=== PATIENT | male | born 1955 | race American Indian/Alaskan Native ===

== ENCOUNTER 2017-06-12 15:13 | Emergency (ER) | payer MEDICARE ==
[2017-06-12 15:22] VITALS: BP 122/67
--- NOTE | 2017-06-12 18:29 | Emergency Department Report ---
Entered by CASTILLO BLUM, acting as scribe for WEN JUAREZ NP. ED ENT HPI - General Chief complaint: Dental/Oral Stated complaint: TOOTHACHE Time Seen by Provider: 06/12/17 17:16 Source: patient Mode of arrival: Wheelchair Limitations: No Limitations - History of Present Illness Initial comments: This is a 61 y/o male, nontoxic, well nourished in appearance, no acute signs of distress presents with toothache x few days. Associated symptoms include facial swelling but denies ear pain, stiff neck, headache, chest pain, shortness of breath, numbness, tingling, fever, chills, nausea and vomiting. Pain is described as 8/10 on a severity scale. Patient has a follow-up appointment with a dentist this Tuesday coming up. No alleviating or aggravating factors. NKDA. SOLOMON complaint: tooth pain -: days(s) Severity: severe Severity scale (0 -10): 8 Consistency: constant Improves with: none Worsens with: none Associated Symptoms: toothache, other (facial swelling, denies: fever, chills, nausea, vomiting, ear pain). denies: fever, cough, gum swelling, pain with swallowing, sore throat, tinnitus, hearing loss, discharge from ear, rhinorrhea - Related Data Home Medications Medication Instructions Recorded Confirmed Last Taken Aspirin [Aspirin Enteric Coated] 81 mg PO DAILY 03/13/14 02/25/17 Unknown [place]-3 Acid Ethyl Esters [Lovaza] 2 gm PO BID 03/13/14 02/25/17 Unknown Dorzolamide 2% (Nf) [Trusopt] 1 drop OP TID 02/25/17 02/25/17 Unknown Doxazosin Mesylate [Cardura] 8 mg PO BID 02/25/17 02/25/17 Unknown Insulin Aspart Prot/Aspart(Nf) 0 units SC QDAY 02/25/17 02/25/17 Unknown [NovoLOG Mix 70/30 VIAL] Montelukast [Singulair] 10 mg PO QDAY 02/25/17 02/25/17 Unknown Omeprazole 40 mg PO QDAY 02/25/17 02/25/17 Unknown amLODIPine [Norvasc] 10 mg PO QDAY 02/25/17 03/02/17 Unknown Previous Rx's Medication Instructions Recorded Last Taken Type Fluticasone [Flonase] 100 mcg NS QDAY #1 bottle 07/13/16 Unknown Rx Folic Acid/Vit B Comp W-C [Renal 1 cap PO QDAY capsule 07/13/16 Unknown Rx Caps] Furosemide [Lasix TAB] 80 mg PO QDAY #30 tablet 07/13/16 Unknown Rx ISOSORBIDE MONOnitrate [Imdur ER] 60 mg PO QDAY #30 tablet 07/13/16 Unknown Rx Latanoprost 0.005% [Xalatan 0.005%] 1 drop OP QPM #1 bottle 07/13/16 Unknown Rx Docusate Sodium [Colace CAP] 100 mg PO BID #20 capsule 03/04/17 Unknown Rx HYDROcodone/APAP 10-325 [[place] 1 each PO Q8H PRN #15 tablet 03/04/17 Unknown Rx 10-325 mg TAB] Labetalol [Normodyne TAB] 300 mg PO TID #90 tablet 03/04/17 Unknown Rx Sodium Bicarbonate 1,300 mg PO TID #90 tablet 03/04/17 Unknown Rx hydrALAZINE [Apresoline TAB] 100 mg PO Q8HR #90 tab 03/04/17 Unknown Rx Amoxicillin/K Clav Tab [Augmentin 1 tab PO Q12HR #20 tab 06/12/17 Unknown Rx 875 mg] Ibuprofen [Motrin 600 MG tab] 600 mg PO Q8H PRN #30 tablet 06/12/17 Unknown Rx Allergies Allergy/AdvReac Type Severity Reaction Status Date / Time morphine Allergy Unknown Verified 06/12/17 15:18 MARIA DEL CARMEN Inhibitors AdvReac Swelling Verified 06/12/17 15:18 atorvastatin calcium AdvReac muscle Verified 06/12/17 15:18 [From Lipitor] weakness sevelamer AdvReac Nausea Verified 06/12/17 15:18 sevelamer HCl [From Renagel] AdvReac Nausea Verified 06/12/17 15:18 simvastatin AdvReac muscle Verified 06/12/17 15:18 weakness ED Dental HPI - General Chief complaint: Dental/Oral Stated complaint: TOOTHACHE Time Seen by Provider: 06/12/17 16:33 Source: patient Mode of arrival: Wheelchair Limitations: No Limitations - Related Data Home Medications Medication Instructions Recorded Confirmed Last Taken Aspirin [Aspirin Enteric Coated] 81 mg PO DAILY 03/13/14 02/25/17 Unknown [place]-3 Acid Ethyl Esters [Lovaza] 2 gm PO BID 03/13/14 02/25/17 Unknown Dorzolamide 2% (Nf) [Trusopt] 1 drop OP TID 02/25/17 02/25/17 Unknown Doxazosin Mesylate [Cardura] 8 mg PO BID 02/25/17 02/25/17 Unknown Insulin Aspart Prot/Aspart(Nf) 0 units SC QDAY 02/25/17 02/25/17 Unknown [NovoLOG Mix 70/30 VIAL] Montelukast [Singulair] 10 mg PO QDAY 02/25/17 02/25/17 Unknown Omeprazole 40 mg PO QDAY 02/25/17 02/25/17 Unknown amLODIPine [Norvasc] 10 mg PO QDAY 02/25/17 03/02/17 Unknown Previous Rx's Medication Instructions Recorded Last Taken Type Fluticasone [Flonase] 100 mcg NS QDAY #1 bottle 07/13/16 Unknown Rx Folic Acid/Vit B Comp W-C [Renal 1 cap PO QDAY capsule 07/13/16 Unknown Rx Caps] Furosemide [Lasix TAB] 80 mg PO QDAY #30 tablet 07/13/16 Unknown Rx ISOSORBIDE MONOnitrate [Imdur ER] 60 mg PO QDAY #30 tablet 07/13/16 Unknown Rx Latanoprost 0.005% [Xalatan 0.005%] 1 drop OP QPM #1 bottle 07/13/16 Unknown Rx Docusate Sodium [Colace CAP] 100 mg PO BID #20 capsule 03/04/17 Unknown Rx HYDROcodone/APAP 10-325 [[place] 1 each PO Q8H PRN #15 tablet 03/04/17 Unknown Rx 10-325 mg TAB] Labetalol [Normodyne TAB] 300 mg PO TID #90 tablet 03/04/17 Unknown Rx Sodium Bicarbonate 1,300 mg PO TID #90 tablet 03/04/17 Unknown Rx hydrALAZINE [Apresoline TAB] 100 mg PO Q8HR #90 tab 03/04/17 Unknown Rx Amoxicillin/K Clav Tab [Augmentin 1 tab PO Q12HR #20 tab 06/12/17 Unknown Rx 875 mg] Ibuprofen [Motrin 600 MG tab] 600 mg PO Q8H PRN #30 tablet 06/12/17 Unknown Rx Allergies Allergy/AdvReac Type Severity Reaction Status Date / Time morphine Allergy Unknown Verified 06/12/17 15:18 MARIA DEL CARMEN Inhibitors AdvReac Swelling Verified 06/12/17 15:18 atorvastatin calcium AdvReac muscle Verified 06/12/17 15:18 [From Lipitor] weakness sevelamer AdvReac Nausea Verified 06/12/17 15:18 sevelamer HCl [From Renagel] AdvReac Nausea Verified 06/12/17 15:18 simvastatin AdvReac muscle Verified 06/12/17 15:18 weakness ED Review of Systems Comment: All other systems reviewed and negative Constitutional: denies: chills, fever Eyes: denies: eye pain, eye discharge, vision change ENT: dental pain, other (facial swelling). denies: ear pain Respiratory: denies: cough, shortness of breath, wheezing Cardiovascular: denies: chest pain, palpitations Endocrine: no symptoms reported Gastrointestinal: denies: nausea, vomiting Genitourinary: denies: urgency, dysuria Musculoskeletal: denies: back pain, joint swelling, arthralgia Skin: denies: rash, lesions Neurological: denies: headache, weakness, paresthesias Psychiatric: denies: anxiety, depression Hematological/Lymphatic: denies: easy bleeding, easy bruising ED Past Medical Hx - Past Medical History Hx Hypertension: Yes Hx CVA: Yes (TIA) Hx Heart Attack/AMI: Yes (CAD) Hx Congestive Heart Failure: Yes Hx Diabetes: Yes Hx Renal Disease: Yes (dialysis m,w,f) Hx Asthma: No Hx COPD: No - Surgical History Hx Coronary Stent: Yes Additional Surgical History: Toe , fistula right upper arm - Social History Smoking Status: Never Smoker Substance Use Type: None - Medications Home Medications: Home Medications Medication Instructions Recorded Confirmed Last Taken Type Aspirin [Aspirin Enteric Coated] 81 mg PO DAILY 03/13/14 02/25/17 Unknown History [place]-3 Acid Ethyl Esters [Lovaza] 2 gm PO BID 03/13/14 02/25/17 Unknown History Fluticasone [Flonase] 100 mcg NS QDAY #1 bottle 07/13/16 02/25/17 Unknown Rx Folic Acid/Vit B Comp W-C [Renal 1 cap PO QDAY capsule 07/13/16 02/25/17 Unknown Rx Caps] Furosemide [Lasix TAB] 80 mg PO QDAY #30 tablet 07/13/16 02/25/17 Unknown Rx ISOSORBIDE MONOnitrate [Imdur ER] 60 mg PO QDAY #30 tablet 07/13/16 02/25/17 Unknown Rx Latanoprost 0.005% [Xalatan 0.005%] 1 drop OP QPM #1 bottle 07/13/16 02/25/17 Unknown Rx Dorzolamide 2% (Nf) [Trusopt] 1 drop OP TID 02/25/17 02/25/17 Unknown History Doxazosin Mesylate [Cardura] 8 mg PO BID 02/25/17 02/25/17 Unknown History Insulin Aspart Prot/Aspart(Nf) 0 units SC QDAY 02/25/17 02/25/17 Unknown History [NovoLOG Mix 70/30 VIAL] Montelukast [Singulair] 10 mg PO QDAY 02/25/17 02/25/17 Unknown History Omeprazole 40 mg PO QDAY 02/25/17 02/25/17 Unknown History amLODIPine [Norvasc] 10 mg PO QDAY 02/25/17 03/02/17 Unknown History Docusate Sodium [Colace CAP] 100 mg PO BID #20 capsule 03/04/17 Unknown Rx HYDROcodone/APAP 10-325 [[place] 1 each PO Q8H PRN #15 tablet 03/04/17 Unknown Rx 10-325 mg TAB] Labetalol [Normodyne TAB] 300 mg PO TID #90 tablet 03/04/17 Unknown Rx Sodium Bicarbonate 1,300 mg PO TID #90 tablet 03/04/17 Unknown Rx hydrALAZINE [Apresoline TAB] 100 mg PO Q8HR #90 tab 03/04/17 Unknown Rx Amoxicillin/K Clav Tab [Augmentin 1 tab PO Q12HR #20 tab 06/12/17 Unknown Rx 875 mg] Ibuprofen [Motrin 600 MG tab] 600 mg PO Q8H PRN #30 tablet 06/12/17 Unknown Rx ED Physical Exam - General Limitations: No Limitations General appearance: alert, in no apparent distress - Head Head exam: Present: atraumatic, normocephalic, normal inspection - Eye Eye exam: Present: normal appearance, PERRL, EOMI. Absent: scleral icterus, conjunctival injection, nystagmus, periorbital swelling, periorbital tenderness Pupils: Present: normal accommodation - ENT ENT exam: Present: normal exam, normal orophraynx, mucous membranes moist, TM's normal bilaterally, normal external ear exam - Expanded ENT Exam Expanded Ear exam: Present: normal external inspection Mouth exam: Present: normal external inspection, tongue normal. Absent: drooling, trismus, muffled voice, tongue elevation, laceration Teeth exam: Present: dental caries, dental tenderness # (20,21), gingival enlargement, other (no pus, drainage, induration, or fluctuance noted. Mild facial swelling the left side. Tender to touch.). Absent: fractured tooth # 1 - Dental Tenderness Throat exam: Positive: normal inspection. Negative: tonsillar erythema, tonsillomegaly, tonsillar exudate, R peritonsillar mass, L peritonsillar mass - Neck Neck exam: Present: normal inspection, full ROM. Absent: tenderness, meningismus, lymphadenopathy, thyromegaly - Respiratory Respiratory exam: Present: normal lung sounds bilaterally. Absent: respiratory distress, wheezes, rales, rhonchi, stridor, chest wall tenderness, accessory muscle use, decreased breath sounds, prolonged expiratory - Cardiovascular Cardiovascular Exam: Present: regular rate, normal rhythm, normal heart sounds. Absent: bradycardia, tachycardia, irregular rhythm, systolic murmur, diastolic murmur, rubs, gallop - GI/Abdominal GI/Abdominal exam: Present: soft, normal bowel sounds. Absent: distended, tenderness, guarding, rebound, rigid, diminished bowel sounds - Rectal Rectal exam: Present: deferred - Extremities Exam Extremities exam: Present: normal inspection, full ROM, normal capillary refill. Absent: tenderness, pedal edema, joint swelling, calf tenderness - Back Exam Back exam: Present: normal inspection, full ROM. Absent: tenderness, CVA tenderness (R), CVA tenderness (L), muscle spasm, paraspinal tenderness, vertebral tenderness, rash noted - Neurological Exam Neurological exam: Present: alert, oriented X3, CN II-XII intact, normal gait, reflexes normal - Psychiatric Psychiatric exam: Present: normal affect, normal mood - Skin Skin exam: Present: warm, dry, intact, normal color, other (slight facial swelling ). Absent: rash ED Course Vital Signs 06/12/17 15:18 Temperature 97.8 F Pulse Rate 70 Respiratory 16 Rate Blood Pressure 122/67 O2 Sat by Pulse 98 Oximetry - Reevaluation(s) Reevaluation #1: 06/12/17 17:53 Patient is speaking in full sentences with no signs of distress noted. ED Medical Decision Making - Medical Decision Making 51-year-old male that presents with dental caries, and gingivitis. Patient was instructed to follow-up with a dentist in 24 hours or symptoms worsen such as facial swelling, pus, drainage, or any worsening symptoms return to emergency room as soon as possible. Patient be treated with Augmentin and ibuprofen at discharged. At time time of discharge, the patient does not seem toxic or ill in appearance. No acute signs of distress noted. Patient agrees to discharge treatment plan of care. No further questions noted by the patient. ED Disposition Clinical Impression: Dental caries, Gingivitis Disposition: - TO HOME OR SELFCARE Is pt being admited?: No Does the pt Need Aspirin: No Condition: Stable Instructions: Dental Caries (ED), Gingivitis (ED), Amoxicillin/Clavulanate Potassium (By mouth), Ibuprofen (By mouth) Additional Instructions: follow-up with a dentist in 24 hours or symptoms worsen such as facial swelling , pus, drainage, or any worsening symptoms return to emergency room as soon as possible. Prescriptions: Amoxicillin/K Clav Tab [Augmentin 875 mg] 1 tab PO Q12HR #20 tab Ibuprofen [Motrin 600 MG tab] 600 mg PO Q8H PRN #30 tablet PRN Reason: Pain Referrals: PRIMARY CARE, [Referring] - 3-5 Days KINGS ROD MD [Staff Physician] - 3-5 Days [facility] [Outside] - 24 Hours This documentation as recorded by the KULWANT queen ELIZABETH,accurately reflects the service I personally performed and the decisions made by ,WEN JUAREZ, RODEO CLOWN.
== END 2017-06-12 18:20 | disposition home or self-care (01) ==
LOC: ED 15:13
DX: K05.10 Chronic gingivitis, plaque induced (principal); K02.9 Dental caries, unspecified; I10 Essential (primary) hypertension; I63.9 Cerebral infarction, unspecified; I25.2 Old myocardial infarction; I50.9 Heart failure, unspecified; E11.9 Type 2 diabetes mellitus without complications; Z79.82 Long term (current) use of aspirin; Z79.4 Long term (current) use of insulin; Z88.6 Allergy status to analgesic agent; Z88.8 Allergy status to other drugs, medicaments and biological substances
CPT/HCPCS: 99282